=== PATIENT | female | born 1950 | race Caucasian/White ===

== ENCOUNTER 2024-06-11 09:57 | Emergency (ER) | payer OTHER, BC ==
[2024-06-11 10:05] VITALS: BP 164/96; PULSE 74; RESP 18; TEMP 97.9; BMI 24.4
[2024-06-11 11:36] LABS: BASO % 0.4 % (0-2.0); EOS % 0.3 % (0-4.5); HEMATOCRIT 40.1 % (32.4-45.2); HEMOGLOBIN 13.6 GM/dL (10.7-15.3); LYMPH % 12.8 % (8-40); MCH 30.8 pg (25.7-33.7); MEAN CELL VOLUME 90.6 fl (80-96); MEAN PLT VOLUME 7.7 fl (7.5-11.1); MONO % 5.2 % (3.8-10.2); NEUT % 81.3 % (42.8-82.8); PLATELET COUNT 242 10^3/uL (134-434); RBC 4.42 M/mm3 (3.60-5.2); RDW 12.4 % (11.6-15.6); WHITE BLOOD COUNT 11.6 K/mm3 (4.0-10.0)
[2024-06-11 11:41] LABS: EPI CELLS 28 /uL (0-25.1); HYALINE CASTS 7 /uL (0-3.1); PH,URINE 5.5 (5.0-8.0); URINE APPEARANCE TURBID; URINE BACTERIA 340 /uL (0-1359); URINE BILIRUBIN 1+ (NEGATIVE); URINE COLOR DK YELLOW; URINE GLUCOSE (UA) NEGATIVE (NEGATIVE); URINE KETONE 1+ (NEGATIVE); URINE LEUK ESTERASE 3+ (NEGATIVE); URINE NITRITE NEGATIVE (NEGATIVE); URINE PROTEIN 1+ (NEGATIVE); URINE WBC 19193 /uL (0-25.8)
[2024-06-11 12:05] LABS: URINE RBC 980.7 /uL (0-23.9); YEAST NO SEEN (NEGATIVE)
[2024-06-11] MEDS: SODIUM CHLORIDE 1,000 ML IV ONE (12:08)
[2024-06-11 12:38] LABS: POTASSIUM 3.7 mmol/L (3.5-5.1)
[2024-06-11 12:40] LABS: CALCIUM 9.6 mg/dL (8.5-10.1)
[2024-06-11 12:41] LABS: ALBUMIN 4.2 g/dl (3.4-5.0); BLOOD UREA NITROGEN 13.1 mg/dL (7-18)
[2024-06-11 12:44] LABS: CREATININE 1.1 mg/dL (0.55-1.3)
[2024-06-11 12:45] LABS: BILIRUBIN,TOTAL 0.8 mg/dL (0.2-1); TOT PROT 7.6 g/dl (6.4-8.2)
[2024-06-11] MEDS: CEFTRIAXONE 1 GM in DEXTROSE 5%-WATER - 50 ML IVPB ONE (16:53)
[2024-06-11] MEDS ORDERED: CEPHALEXIN MONOHYDRATE 500 MG CAPSULE (UD) ONE (16:54)
[2024-06-11] MEDS: CEPHALEXIN MONOHYDRATE 500 MG CAPSULE (UD) PO ONE (17:00)
== END 2024-06-11 17:22 | disposition home or self-care (01) ==
LOC: JER 09:57
DX: N30.90 Cystitis, unspecified without hematuria (principal); R10.32 Left lower quadrant pain
CPT/HCPCS: 36415; 74176-TC; 80053; 81003; 85025; 87086; 99284-25